=== PATIENT | male | born 1965 | race Caucasian/White ===

== ENCOUNTER → 2023-03-24 | Emergency (ER) | payer SELFPAY ==
[~2023-03-24] MED LIST: ASPIRIN 81 MG CHEWABLE TABLET ONE; LORAZEPAM 1 MG TABLET ONE; LORazepam 2 MG/ML VIAL ONE; NICOTINE 21 MG/PAT TD ONE; VENLAFAXINE HCL XR 75 MG CAP PO ONE; WATER FOR INJ,STERILE 10 ML ONE; ZIPRASIDONE MESYLA 20 MG/VIAL IM ONE; lisinopriL 20 MG TAB ONE
[2023-03-24 19:10] LABS: Absolute Lymphocytes (CBC) 1.5 K/uL (0.7-4.9); Hematocrit 36.4 % (39.6-49.0); Lymphocytes % 20.7 % (15.3-44.8); MCV 87.9 fL (80-100); MPV 6.2 fL (7.6-11.3); Platelets 178 thou/uL (152-406); RBC Red Blood Cell Count 4.15 M/uL (4.33-5.43)
[2023-03-24 19:13] LABS: Protime INR 1.13
[2023-03-24 19:25] LABS: ALT/SGPT 41 U/L (16-61); AST/SGOT 15 U/L (15-37); Alkaline Phosphatase 59 U/L (45-117); BUN Blood Urea Nitrogen 10 mg/dL (7-18); Bicarbonate 27 mEq/L (21-32); Bilirubin Total 0.3 mg/dL (0.2-1.0); Glomerular Filtration Rate 109 ml/min (=/>90); Glucose Level 175 mg/dL (74-106); Magnesium 1.8 mg/dL (1.6-2.4); NT PRO-BNP 52 pg/mL (<125); Potassium 3.6 mEq/L (3.5-5.1); Protein, Total 6.4 g/dL (6.4-8.2); Sodium Level 139 mEq/L (136-145)
[2023-03-24 19:26] LABS: Bilirubin Direct < 0.1 mg/dL (0-0.2); Bilirubin Indirect, Calculated ND mg/dL (0.2-0.8)
[2023-03-24 19:35] LABS: Specific Gravity 1.021 (1.005-1.030); Urine Bacteria None Seen /HPF (<20); Urine Bilirubin NEGATIVE (Negative); Urine Blood Negative (Negative); Urine Clarity Turbid (Clear); Urine Color Light-Yellow (Yellow); Urine Glucose 3+ (Negative); Urine Mucus Slight /HPF (None Seen); Urine Protein NEGATIVE (Negative); Urine RBC <5 /HPF (None Seen); Urine Urobilinogen 1+ (Normal); Urine pH 6.5 (5.0-7.0)
[2023-03-24 19:41] LABS: Barbiturates NEGATIVE (NEGATIVE); Benzodiazepines NEGATIVE (NEGATIVE); Cocaine NEGATIVE (NEGATIVE); METHAMPHETAM NEGATIVE (NEGATIVE); Methadone NEGATIVE (NEGATIVE); Opiates NEGATIVE (NEGATIVE); Phencyclidine NEGATIVE (NEGATIVE); THC Cannibis NEGATIVE (NEGATIVE)
--- NOTE | 2023-03-24 19:53 | RAD REPORT ---
EXAM DESCRIPTION: [place] Single View03/24/2023 7:37 pm CLINICAL HISTORY: Chest pain COMPARISON: none FINDINGS: Several calcified granulomas within the lungs. The lungs appear clear of acute infiltrate. The heart is normal size IMPRESSION: No acute abnormalities displayed
[2023-03-24 20:53] LABS: SARS-CoV-2 Antigen Rapid Res Negative (Negative)
--- NOTE | 2023-03-25 01:59 | EDPHYS ---
Physician Documentation [facility] Name: Boyd Davies Age: 58 yrs Sex: Male : 1965 Arrival Date: 03/24/2023 Time: 18:40 Bed [id number] Private MD: ED Physician Jesus Manuel Ceballos HPI: 03/24 18:55 This 58 yrs old Male presents to ER via Ambulatory with complaints of Chest Pain and cp Suicidal Ideation. 18:55 The patient or guardian reports chest pain that is located primarily in the anterior cp chest wall. 18:55 Onset: today. cp 18:55 The pain does not radiate. The chest pain is described as a pressure. Duration: The cp patient or guardian reports a single episode, that is still ongoing, and unchanged. Patient reports being suicidal. Reports taking unknown quantity of Effexor last week in attempt to overdose. Historical: - Allergies: 18:48 Codeine; mb9 - Home Meds: 18:48 venlafaxine oral [Active]; mb9 - PMHx: 18:48 Myocardial infarction; Hypertensive disorder; Depressive disorder; mb9 - PSHx: 18:48 Stented artery; mb9 - Immunization history:: Adult Immunizations up to date. - Social history:: Smoking status: Patient denies any tobacco usage or history of. ROS: 19:00 Constitutional: Negative for body aches, chills, fever, poor PO intake, cp 19:00 Cardiovascular: Positive for chest pain, Negative for palpitations, cp 19:00 Respiratory: Positive for shortness of breath, Negative for cough, wheezing, 19:00 Neuro: Negative for syncope, weakness, 19:00 Psych: Positive for suicidal ideation, 19:00 Eyes: Negative for injury, pain, redness, and discharge, cp 19:00 ENT: Negative for drainage from ear(s), ear pain, sore throat, difficulty swallowing, cp difficulty handling secretions, 19:00 Abdomen/GI: Negative for abdominal pain, vomiting, diarrhea, constipation, 19:00 All other systems are negative, Exam: 19:00 Head/Face: Normocephalic, atraumatic. cp 19:00 Constitutional: The patient appears in no acute distress, alert, awake, non-diaphoretic, non-toxic, well developed, well nourished, anxious, 19:00 Eyes: Periorbital structures: appear normal, Conjunctiva: normal, no exudate, no cp injection, Sclera: no appreciated abnormality, Lids and lashes: appear normal, bilaterally, 19:00 ENT: External ear(s): are unremarkable, Nose: is normal, Mouth: Lips: moist, Oral mucosa: pink and intact, moist, Posterior pharynx: is normal, airway is patent, no erythema, no exudate, 19:00 Chest/axilla: Inspection: normal, Palpation: is normal, no crepitus, no tenderness, cp 19:00 Cardiovascular: Rate: normal, Rhythm: regular, Edema: is not appreciated, JVD: is not cp appreciated, 19:00 Respiratory: the patient does not display signs of respiratory distress, Respirations: normal, no use of accessory muscles, no retractions, labored breathing, is not present, Breath sounds: are clear throughout, no decreased breath sounds, no stridor, no wheezing, 19:00 Abdomen/GI: Inspection: abdomen appears normal, Bowel sounds: active, all quadrants, Palpation: abdomen is soft and non-tender, in all quadrants, 19:00 Neuro: Orientation: to person, place \T\ time. Mentation: is normal, Motor: moves all fours, strength is normal, Sensation: is normal, 19:00 Psych: Behavior/mood is cooperative, Judgement / Insight is normal. Delusions/hallucinations are not present. :27 ECG was reviewed by the Attending Physician. 03/25 00:22 ECG was reviewed by the Attending Physician. cp Vital Signs: 03/24 18:46 Resp 18; Temp 98; Weight 86.18 kg; Height 5 ft. 5 in. ; mb9 18:58 BP 156 / 70; Pulse 74; Resp 18; Pulse Ox 100% ; mb9 19:43 BP 156 / 83; Pulse 68; Resp 16; Pulse Ox 100% on R/A; lg3 23:00 BP 150 / 83; Pulse 62; Resp 19 S; Pulse Ox 100% on R/A; lg3 23:41 BP 141 / 77; Pulse 58; Resp 18 S; Pulse Ox 100% on R/A; lg3 03/25 02:15 BP 136 / 77; Pulse 69; Resp 17; Pulse Ox 100% on R/A; mc5 06:47 BP 174 / 86; Pulse 70; Resp 16 S; Pulse Ox 100% on R/A; lg3 18:20 BP 131 / 75; Pulse 79; Resp 18; Pulse Ox 100% on R/A; mb9 03/24 18:46 Body Mass Index 31.62 (86.18 kg, 165.1 cm) 9 MDM: 03/24 18:48 Patient medically screened. 03/25 00:00 Data reviewed: vital signs, nurses notes, lab test result(s), EKG, radiologic studies, cp plain films. 00:00 Differential diagnosis: abnormal EKG, acute myocardial infarction, pneumonia, cp pneumothorax, stable angina, unstable angina. The patient was not given aspirin in the Emergency Department. Administered by EMS. I considered the following discharge prescriptions or medication management in the emergency department Medications were administered in the Emergency Department. See MAR. Independent interpretation of the following test(s) in the Emergency Department EKG: See my EKG interpretation above. Care significantly affected by the following chronic conditions: Hypertension. Counseling: I had a detailed discussion with the patient and/or guardian regarding the historical points, exam findings, and any diagnostic results supporting the discharge/admit diagnosis, lab results, radiology results. 03/24 18:49 Order name: Basic Metabolic Panel; Complete Time: 20:07 03/24 22:24 Interpretation: Normal except: GLUC 175; CRE 0.69. 03/24 18:49 Order name: CBC with Diff; Complete Time: 20:07 03/24 22:24 Interpretation: Normal except: RBC 4.15; HGB 12.8; HCT 36.4; MPV 6.2. 03/24 18:49 Order name: LFT's; Complete Time: 20:07 03/24 18:49 Order name: Magnesium; Complete Time: 20:07 03/24 18:49 Order name: NT PRO-BNP; Complete Time: 20:07 03/24 18:49 Order name: PT-INR; Complete Time: 20:07 03/24 18:49 Order name: Troponin HS; Complete Time: 20:07 03/24 18:49 Order name: Acetaminophen; Complete Time: 20:07 03/24 18:49 Order name: ETOH Level; Complete Time: 20:07 03/24 18:49 Order name: Ptt, Activated; Complete Time: 20:07 03/24 18:49 Order name: Salicylate; Complete Time: 20:07 cp 03/24 18:49 Order name: Urinalysis w/ reflexes; Complete Time: 20:07 cp 03/24 18:49 Order name: Urine Drug Screen; Complete Time: 20:07 cp 03/24 20:11 Order name: SARS RAPID; Complete Time: 22:23 3 03/24 23:55 Order name: Troponin High Sensitivity; Complete Time: 21:41 rv1 03/25 21:42 Interpretation: Reviewed. 03/24 18:49 Order name: XRAY Chest (1 view); Complete Time: 20:07 cp 03/24 18:49 Order name: EKG; Complete Time: 18:50 cp 03/24 18:49 Order name: Cardiac monitoring; Complete Time: 18:59 cp 03/24 18:49 Order name: EKG - Nurse/Tech; Complete Time: 19:48 cp 03/24 18:49 Order name: IV Saline Lock; Complete Time: 18:59 cp 03/24 18:49 Order name: Labs collected and sent; Complete Time: 18:59 cp 03/24 18:49 Order name: O2 Per Protocol; Complete Time: 18:59 cp 03/24 18:49 Order name: O2 Sat Monitoring; Complete Time: 18:59 cp 03/24 18:49 Order name: Suicide Precautions; Complete Time: 18:59 cp 03/24 18:49 Order name: Suicide Screening ([place]); Complete Time: 18:59 cp 03/24 23:56 Order name: EKG - Nurse/Tech; Complete Time: 00:13 cp EC/27 19:27 Rate is 56 beats/min. Rhythm is regular. ID interval is normal. QRS interval is normal. cp QT interval is normal. T waves are Inverted in leads aVL, aVR. Interpreted by me. Reviewed by me. 03/25 00:22 Rate is 54 beats/min. Rhythm is regular. ID interval is normal. QRS interval is normal. cp QT interval is normal. T waves are Inverted in lead aVR. Interpreted by me. Reviewed by me. Administered Medications: 03/24 18:59 Drug: Aspirin PO Chewable Tablet 324 mg PO once; 81 mg tablets x 4 Route: PO; mb9 03/25 02:18 Follow up: Response: No adverse reaction lg3 03/24 20:13 Drug: Ativan IVP 1 mg IVP once Route: IVP; Site: left antecubital; lg3 20:47 Follow up: Response: No adverse reaction; Marked relief of symptoms; Anxiety decreased; lg3 RASS: Drowsy (-1) 23:44 CANCELLED (Physician Discretion): [id number] mg PO once cp 23:48 CANCELLED (Other Intervention Used): [id number] mg PO once lg3 23:48 Drug: Lisinopril PO 20 mg PO once Route: PO; lg3 03/25 02:18 Follow up: Response: No adverse reaction; Marked relief of symptoms; Blood pressure is lg3 lowered 06:54 Drug: LORazepam PO 2 mg PO once Route: PO; lg3 09:31 Follow up: Response: No adverse reaction mb9 07:35 Drug: Nicotine Transdermal Patch 21 mg/24 hr 1 patches Transdermal once {Note: to right aa5 upper arm..} Route: Transdermal; Site: anterior chest wall; 12:33 Drug: LORazepam PO 2 mg PO once Route: PO; mb9 17:24 Follow up: Response: No adverse reaction mb9 14:19 Drug: Effexor XR PO 75 mg PO once Route: PO; mb9 17:24 Follow up: Response: No adverse reaction mb9 14:41 Drug: Geodon IM 20 mg IM once Route: IM; Site: left deltoid; mb9 17:24 Follow up: Response: No adverse reaction mb9 Disposition Summary: 03/25/23 01:58 Transfer Ordered Notes: Transfer Location: [facility] cp Reason: Higher level of care cp Condition: Stable cp Problem: new cp Symptoms: have improved cp Accepting Physician: Doctor(03/25/23 23:45) as6 Diagnosis - Suicidal ideations cp Discharge Instructions: - Discharge Summary Sheet pm6 Forms: - Medication Reconciliation Form cp - SBAR form pm6 Signatures: Dispatcher [employer] EDPearl Clayton RN RN aa5 Jesus Manuel Sterling PA PA cp Able, Lacie, RN RN lg3 Finn Garzon RN RN as6 Shima Dunham RN RN mb9 Stanley Mayers MD MD rt Trenton Velazquez MD MD cu Corrections: (The following items were deleted from the chart) 03/24 23:08 23:07 This 58 yrs old Male presents to ER via Ambulatory with complaints of Chest Pain cp and Suicidal Ideation. cp 23:44 23:27 Lisinopril PO 20 mg PO once ordered. cp cp 23:48 23:44 Lisinopril PO 10 mg PO once ordered. cp lg3 03/25 05:09 03/23 19:00 Constitutional: The patient appears in no acute distress, alert, awake, cp non-diaphoretic, non-toxic, well developed, well nourished, anxious, cp 03/25 05:09 03/23 19:00 Head/Face: Normocephalic, atraumatic. cp cp 03/25 05:11 03/24 19:27 Rate is 56 beats/min. Rhythm is regular. ID interval is normal. QRS cp interval is normal. QT interval is normal. T waves are Inverted in leads aVL, aVR. Interpreted by me. Reviewed by me. cp 03/25 05:15 03/24 19:27 Rate is 54 beats/min. Rhythm is regular. ID interval is normal. QRS cp interval is normal. QT interval is normal. T waves are Inverted in lead aVR. Interpreted by me. Reviewed by me. cp 03/25 08:19 03/24 20:07 SARS-COV-2 RT PCR+MOL.LAB.BRZ ordered. EDMS EDMS 03/25 08:19 03/24 20:11 SARS-COV-2 RT PCR+MOL.LAB.BRZ reviewed. cu EDMS 03/25 23:45 01:58 Doctor cp as6
--- NOTE | 2023-03-25 01:59 | ER ---
Nurse's Notes [facility] Name: Boyd Davies Age: 58 yrs Sex: Male : 1965 Arrival Date: 03/24/2023 Time: 18:40 Bed IW10 Private MD: Diagnosis: Suicidal ideations Presentation: 03/24 18:46 Chief complaint: EMS states: "toned out for CP, SOB and suicidal ideation. Pt states he mb9 wants to shoot himself in the head with a gun". Coronavirus screen: At this time, the client does not indicate any symptoms associated with coronavirus-19. Ebola Screen: No symptoms or risks identified at this time. Initial Sepsis Screen: Does the patient meet any 2 criteria? No. Patient's initial sepsis screen is negative. Does the patient have a suspected source of infection? No. Patient's initial sepsis screen is negative. Risk Assessment: Do you want to hurt yourself or someone else? Patient reports no desire to harm self or others. Onset of symptoms was March 24, 2023. 18:46 Method Of Arrival: Ambulatory mb9 18:46 Acuity: NAVJOT 2 mb9 Triage Assessment: 18:49 General: Appears in no apparent distress. Behavior is calm, cooperative. Pain: mb9 Complains of pain in chest Pain does not radiate. Pain currently is 10 out of 10 on a pain scale. Quality of pain is described as throbbing, Pain began suddenly, Is continuous. EENT: No signs and/or symptoms were reported regarding the EENT system. Neuro: Harkins Agitation-Sedation Scale (RASS): 0 - Alert and Calm. Neuro: Level of Consciousness is awake, alert, obeys commands, Oriented to person, place, time, situation, Appropriate for age. Cardiovascular: Reports chest pain, shortness of breath, Heart tones S1 S2 present Patient's skin is warm and dry. Respiratory: Reports shortness of breath Airway is patent Respiratory effort is even, unlabored, Respiratory pattern is regular, symmetrical, Breath sounds are clear bilaterally. GI: Abdomen is round non-distended, Bowel sounds present X 4 quads. Abd is soft and non tender X 4 quads. : No signs and/or symptoms were reported regarding the genitourinary system. Derm: Skin is pink, warm \\T\\ dry. Musculoskeletal: Range of motion: intact in all extremities. Historical: - Allergies: 18:48 Codeine; mb9 - Home Meds: 18:48 venlafaxine oral [Active]; mb9 - PMHx: 18:48 Myocardial infarction; Hypertensive disorder; Depressive disorder; mb9 - PSHx: 18:48 Stented artery; mb9 - Immunization history:: Adult Immunizations up to date. - Social history:: Smoking status: Patient denies any tobacco usage or history of. Screenin:[facility] ED Fall Risk Assessment (Adult) History of falling in the last 3 months, mb9 including since admission No falls in past 3 months (0 pts) Confusion or Disorientation No (0 pts) Intoxicated or Sedated No (0 pts) Impaired Gait No (0 pts) Mobility Assist Device Used No (0 pt) Altered Elimination No (0 pt) Score/Fall Risk Level 0 - 2 = Low Risk Oriented to surroundings, Maintained a safe environment, Educated pt \\T\\ family on fall prevention, incl call for assistance when getting out of bed. Abuse screen: Denies threats or abuse. Nutritional screening: No deficits noted. Tuberculosis screening: No symptoms or risk factors identified. Assessment: 18:50 Reassessment: see triage assessment. mb9 18:58 Reassessment: SI precautions in place. Sitter at bedside. mb9 19:00 General: Appears in no apparent distress. comfortable, Behavior is cooperative, lg3 anxious, restless. Pain: Complains of pain in chest Pain does not radiate. Pain currently is 3 out of 10 on a pain scale. Neuro: No deficits noted. Harkins Agitation-Sedation Scale (RASS): 0 - Alert and Calm Level of Consciousness is awake, alert, obeys commands, Oriented to person, place, time, situation. Cardiovascular: No deficits noted. Reports chest pain, shortness of breath, Capillary refill < 3 seconds Clubbing of nail beds is absent JVD is absent Patient's skin is warm and dry. Chest pain is described as vague, mild, is located in substernal area. Respiratory: No deficits noted. Reports shortness of breath at rest on exertion Airway is patent Respiratory effort is even, unlabored, Respiratory pattern is regular, symmetrical. GI: No deficits noted. No signs and/or symptoms were reported involving the gastrointestinal system. Abdomen is round non-distended, Patient currently denies abdominal pain. : No deficits noted. No signs and/or symptoms were reported regarding the genitourinary system. EENT: No deficits noted. No signs and/or symptoms were reported regarding the EENT system. Derm: No deficits noted. No signs and/or symptoms reported regarding the dermatologic system. Skin is intact, is healthy with good turgor, Skin is dry, Skin is normal, Skin temperature is warm. Musculoskeletal: No deficits noted. No signs and/or symptoms reported regarding the musculoskeletal system. Circulation, motion, and sensation intact. Range of motion: intact in all extremities. 20:00 General: pt requesting depression and anxiety medications at this time. pt states that lg3 he is unable to breathe and cant sit still. Pt also reports being out of his Venlafaxine since Sunday. Pt reports ingesting 32 tabs of 220 MG Venlafaxine on Sunday with intentions of killing himself. . 20:48 General: pt quietly resting at this time. lg3 22:04 General: [place] at bedside. lg3 23:13 General: [facility] evaluation complete. pt quietly resting at this time. lg3 03/25 01:12 Reassessment: Patient appears in no apparent distress at this time. No changes from lg3 previously documented assessment. Patient and/or family updated on plan of care and expected duration. Pain level reassessed. Patient is alert, oriented x 3, equal unlabored respirations, skin warm/dry/pink. 04:33 Reassessment: eyes closed. Respiratory: Airway is patent Respiratory effort is even, ha1 unlabored, Respiratory pattern is regular, symmetrical. 06:01 Reassessment: Patient appears in no apparent distress at this time. No changes from lg3 previously documented assessment. 06:45 General: pt awake and pacing at this time. pt states he is SOB and cant breathe. VSS. lg3 oxygen 100%RA. pt requesting medications for anxiety and depression. provider notified. . 08:10 Reassessment: Patient appears in no apparent distress at this time. Patient is alert, mb9 oriented x 3, equal unlabored respirations, skin warm/dry/pink. SI precautions in place. Sitter at bedside. 09:10 Reassessment: Patient appears in no apparent distress at this time. Patient and/or mb9 family updated on plan of care and expected duration. Pain level reassessed. SI precautions in place. Sitter at bedside. 10:09 Reassessment: Patient appears in no apparent distress at this time. Patient and/or mb9 family updated on plan of care and expected duration. Pain level reassessed. SI precautions in place. Sitter at bedside. 11:10 Reassessment: Patient appears in no apparent distress at this time. No changes from mb9 previously documented assessment. Patient and/or family updated on plan of care and expected duration. Pain level reassessed. Patient is alert, oriented x 3, equal unlabored respirations, skin warm/dry/pink. SI precautions in place. Sitter at bedside. 12:10 Reassessment: Patient appears in no apparent distress at this time. No changes from mb9 previously documented assessment. Patient is alert, oriented x 3, equal unlabored respirations, skin warm/dry/pink. SI precautions in place. Sitter at bedside. 13:10 Reassessment: Patient appears in no apparent distress at this time. No changes from mb9 previously documented assessment. Patient and/or family updated on plan of care and expected duration. Pain level reassessed. SI precautions in place. Sitter at bedside. 14:10 Reassessment: Patient appears in no apparent distress at this time. No changes from mb9 previously documented assessment. Patient and/or family updated on plan of care and expected duration. Pain level reassessed. Patient is alert, oriented x 3, equal unlabored respirations, skin warm/dry/pink. SI precautions in place. Sitter at bedside. 15:10 Reassessment: Reassessment: Patient appears in no apparent distress at this time. No mb9 changes from previously documented assessment. Patient and/or family updated on plan of care and expected duration. Pain level reassessed. Patient is alert, oriented x 3, equal unlabored respirations, skin warm/dry/pink. SI precautions in place. Sitter at bedside. 16:10 Reassessment: Patient appears in no apparent distress at this time. No changes from mb9 previously documented assessment. Patient and/or family updated on plan of care and expected duration. Pain level reassessed. Patient is alert, oriented x 3, equal unlabored respirations, skin warm/dry/pink. SI precautions in place. Sitter at bedside. 17:23 Reassessment: Patient appears in no apparent distress at this time. Patient is alert, mb9 oriented x 3, equal unlabored respirations, skin warm/dry/pink. SI precautions in place. Sitter at bedside. 18:10 Reassessment: No changes from previously documented assessment. Patient is alert, mb9 oriented x 3, equal unlabored respirations, skin warm/dry/pink. SI precautions in place. Sitter at bedside. 20:48 Reassessment: No changes from previously documented assessment. Patient and/or family la4 updated on plan of care and expected duration. Pain level reassessed. Call received from Vivien at [facility]. Pt accepted to service at this time. [facility] DR. Cecilio Braun and Orthopedic Technician: Luanne Otero \\T\\[id number]. Pt quietly sleeping at this time. Vital Signs: 03/24 18:46 Resp 18; Temp 98; Weight 86.18 kg; Height 5 ft. 5 in. ; mb9 18:58 BP 156 / 70; Pulse 74; Resp 18; Pulse Ox 100% ; mb9 19:43 BP 156 / 83; Pulse 68; Resp 16; Pulse Ox 100% on R/A; lg3 23:00 BP 150 / 83; Pulse 62; Resp 19 S; Pulse Ox 100% on R/A; lg3 23:41 BP 141 / 77; Pulse 58; Resp 18 S; Pulse Ox 100% on R/A; lg3 03/25 02:15 BP 136 / 77; Pulse 69; Resp 17; Pulse Ox 100% on R/A; mc5 06:47 BP 174 / 86; Pulse 70; Resp 16 S; Pulse Ox 100% on R/A; lg3 18:20 BP 131 / 75; Pulse 79; Resp 18; Pulse Ox 100% on R/A; mb9 03/24 18:46 Body Mass Index 31.62 (86.18 kg, 165.1 cm) mb9 ED Course: 03/24 18:46 Patient arrived in ED. mb9 18:48 Triage completed. mb9 18:48 Jesus Manuel Sterling PA is PHCP. cp 18:48 Stanley Mayers MD is Attending Physician. cp 18:50 Arm band placed on. mb9 18:58 Bed in low position. Client placed on continuous cardiac and pulse oximetry monitoring. mb9 NIBP monitoring applied. area plant manager on. 18:59 Acetaminophen Sent. mb9 18:59 ETOH Level Sent. mb9 18:59 Ptt, Activated Sent. mb9 18:59 Salicylate Sent. mb9 18:59 Basic Metabolic Panel Sent. mb9 18:59 CBC with Diff Sent. mb9 18:59 LFT's Sent. mb9 18:59 Magnesium Sent. mb9 18:59 NT PRO-BNP Sent. mb9 18:59 PT-INR Sent. mb9 18:59 Troponin HS Sent. mb9 19:00 Safety Checks: Personal items have been removed. The door is open or patient has been lg3 placed in a hallway bed/chair. Sitter present at this time. 19:00 Report received from Shima Miles RN. Client placed on continuous cardiac and pulse lg3 oximetry monitoring. NIBP monitoring applied. area plant manager on. 19:00 Patient maintains SpO2 saturation greater than 95% on room air. lg3 19:07 Report given to ARMANDO Kay. mb9 19:07 Maintain EMS IV. Dressing intact. Good blood return noted. Site clean \\T\\ dry. Gauge \\T\\ mb 9 site: 18g left AC. 19:08 Shima Dunham, RN is Primary Nurse. mb9 19:39 XRAY Chest (1 view) In Process Unspecified. EDMS 20:33 initiated contact with [facility]. pm6 20:50 [facility] Freight Caller ETA 1hr 30 Minutes. pm6 23:22 Jesus Manuel Ceballos MD is Attending Physician. cp 03/25 00:13 Troponin High Sensitivity Sent. lg3 08:20 [facility] called to check to see if patient was still in the facility/. eb 20:42 Initiated transfer with [facility]. pm6 20:47 Pt accepted to [facility]. pm6 21:20 Initiated Transfer with [facility] ETA 20min. pm6 23:44 No provider procedures requiring assistance completed. IV discontinued, intact, as6 bleeding controlled, No redness/swelling at site. Pressure dressing applied. Administered Medications: 03/24 18:59 Drug: Aspirin PO Chewable Tablet 324 mg PO once; 81 mg tablets x 4 Route: PO; mb9 03/25 02:18 Follow up: Response: No adverse reaction [facility] 03/24 20:13 Drug: Ativan IVP 1 mg IVP once Route: IVP; Site: left antecubital; lg3 20:47 Follow up: Response: No adverse reaction; Marked relief of symptoms; Anxiety decreased; lg3 RASS: Drowsy (-1) 23:44 CANCELLED (Physician Discretion): [id number] mg PO once cp 23:48 CANCELLED (Other Intervention Used): [id number] mg PO once lg3 23:48 Drug: Lisinopril PO 20 mg PO once Route: PO; lg3 03/25 02:18 Follow up: Response: No adverse reaction; Marked relief of symptoms; Blood pressure is lg3 lowered 06:54 Drug: LORazepam PO 2 mg PO once Route: PO; lg3 09:31 Follow up: Response: No adverse reaction mb9 07:35 Drug: Nicotine Transdermal Patch 21 mg/24 hr 1 patches Transdermal once {Note: to right aa5 upper arm..} Route: Transdermal; Site: anterior chest wall; 12:33 Drug: LORazepam PO 2 mg PO once Route: PO; mb9 17:24 Follow up: Response: No adverse reaction mb9 14:19 Drug: Effexor XR PO 75 mg PO once Route: PO; mb9 17:24 Follow up: Response: No adverse reaction mb9 14:41 Drug: Geodon IM 20 mg IM once Route: IM; Site: left deltoid; mb9 17:24 Follow up: Response: No adverse reaction mb9 Medication: 04:35 VIS not applicable for this client. ha1 Outcome: 01:58 ER care complete, transfer ordered by . cp 23:45 Transferred by ground EMS to other acute care facility: [facility] . as6 23:45 Condition: stable 23:45 Instructed on the need for transfer, 23:45 Patient left the ED. as6 Signatures: Dispatcher [employer] EDMS Pearl Epstein RN RN aa5 Jesus Manuel Sterling PA PA cp Shelia Lerner Lacie RN RN lg3 Finn Garzon RN RN as6 Denice Parks RN RN ha1 Shima Dunham RN RN mb9 Caroline Gomez 5 Ayan Brown RN RN la4 Mona Asencio pm6 Corrections: (The following items were deleted from the chart) 03/24 20:00 19:00 General: Appears in no apparent distress. comfortable, Behavior is calm, lg3 cooperative, lg3 01/28 16:20 14:48 Reassessment: mb9 mb9
[2023-03-26 01:34] VITALS: BP 131/75; TEMP 98; O2SAT 100
--- NOTE | 2023-03-29 13:45 | EKG ---
Test Date: 2023-03-25 Test Time: 00:15:26 Sanitarian Aide: HELEN MEASUREMENT RESULTS: Intervals: Rate: 54 HI: 178 QRSD: 84 QT: 424 QTc: 402 [place]: P: 45 HI: 178 QRS: 25 T: 55 INTERPRETIVE STATEMENTS: Sinus bradycardia Otherwise normal ECG Compared to ECG 03/24/2023 19:20:04 Myocardial infarct finding no longer present Electronically Signed On 03-29-23 13:27:44 CARD GRADER by Sean Art
--- NOTE | 2023-03-29 13:46 | EKG ---
Test Date: 2023-03-24 Test Time: 19:20:04 Silk Examiner: ZHANE MEASUREMENT RESULTS: Intervals: Rate: 56 DE: 166 QRSD: 84 QT: 440 QTc: 424 [place]: P: 47 DE: 166 QRS: 58 T: 67 INTERPRETIVE STATEMENTS: Sinus bradycardia Septal infarct, age undetermined Abnormal ECG No previous ECG available for comparison Electronically Signed On 03-29-23 13:27:57 BASIN CLEANER by Sean Art
== END ==
LOC: ER 18:40
DX: R45.851 Suicidal ideations (principal); R06.02 Shortness of breath; R07.89 Other chest pain; Z11.52 Encounter for screening for COVID-19; Z88.5 Allergy status to narcotic agent; I10 Essential (primary) hypertension; F32.A Depression, unspecified
CPT/HCPCS: 36415; 71045; 80048; 80076; 80143; 80179; 80307; 81001; 82077; 83735; 83880; 84484; 85025; 85610; 85730; 87811; 93005